=== PATIENT | male | born 1950 | race Caucasian/White ===

== ENCOUNTER 2021-12-29 11:53 | Emergency (ER) | payer OTHER ==
[~2021-12-29] VITALS: Ht 175.3 cm; Wt 74.8 kg
[2021-12-29] MEDS ORDERED: GLIMEPIRIDE2 MG (11:58)
[2021-12-29] MEDS ORDERED: ZESTRIL2.5 MG (12:01)
[2021-12-29] MEDS ORDERED: LIPITOR40 MG (12:02)
[2021-12-29] MEDS ORDERED: ALLOPURINOL300 MG (12:02)
[2021-12-29] MEDS ORDERED: TRICOR48 MG (12:03)
[2021-12-29] MEDS ORDERED: KETO10TA2 PO (14:04)
== END 2021-12-29 14:30 | disposition home or self-care (01) ==
LOC: ER 11:53
DX: S62.397A Other fracture of fifth metacarpal bone, left hand, initial encounter for closed fracture (principal); W18.39XA Other fall on same level, initial encounter; Y93.9 Activity, unspecified; Y92.9 Unspecified place or not applicable; Y99.9 Unspecified external cause status; E11.9 Type 2 diabetes mellitus without complications